=== PATIENT | female | born 1985 | race Caucasian/White ===

== ENCOUNTER 2025-07-05 18:20 | Emergency (ER) | payer BC, SELFPAY ==
[2025-07-05 18:27] VITALS: BP 139/86; PULSE 59; TEMP 36.7; O2SAT 99; BMI 28.9
--- NOTE | 2025-07-05 18:43 | CT_ITS ---
The [address] [address] Patient Name: CLEMENTE MORRIS MRN: [id number] date: 1985 Sex: F Assigned Patient Location: ED.MAIN Current Patient Location: ED.MAIN Accession/Order Number: [id number] Exam Date: 07/05/2025 19:38 Report Date: 07/05/2025 20:06 At the request of: MALENA SAM Procedure: CT abdomen pelvis w con CT ABDOMEN AND PELVIS WITH INTRAVENOUS CONTRAST: CLINICAL HISTORY: RUQ pain COMPARISON: None TECHNIQUE: Spiral images were obtained through the abdomen and pelvis following the administration of intravenous contrast. This CT exam was performed using one or more following dose reduction techniques: Automated exposure control, adjustment of the mA and/or kV according to patient size, or use of iterative reconstruction technique. FINDINGS: Lung Bases: [No focal opacity] Organs:Liver, gallbladder, spleen, adrenals, pancreas unremarkable. Minimal right-sided hydronephrosis caused by a right ureteral pelvic junction[calculus measuring 4 mm in size. There are additional right-sided calculi, nonobstructive. No left-sided hydronephrosis. Left superior pole renal calculus identified. GI: Mild retained stool within colon. No bowel obstruction. Appendix is unremarkable.[ Pelvis:[Heterogeneous uterus. No adnexal mass. There are follicles identified involving both ovaries. Slight prominence of the ovarian veins with likely mixing artifact noted.] Peritoneum/Retroperitoneum: No free air or free fluid. No pathologic adenopathy. Aorta unremarkable caliber. [ Abd wall/Bones:No suspicious osseous lesion.[ CT/CT abdomen pelvis w con IMPRESSION: Right-sided hydroureteronephrosis caused by 4 mm calculus right ureteral pelvic junction. Impression dictated by: Maksim Earl M.D. 07/05/2025 8:06 PM Dictation Location: [place] [address] Electronically authenticated by: [id number] Y Date: 07/05/2025 20:06
--- NOTE | 2025-07-05 18:44 | ED_ITS ---
HPI HPI - General Adult General Chief complaint: Abdominal Pain Stated complaint: ABDOMINAL PAIN/ UPPER RIGHT UNDER RIB CAGE Time Seen by Provider: 07/05/25 18:34 Source: patient Mode of arrival: walk-in History of Present Illness HPI narrative: 40 year old female presents to the ED for RUQ pain. It wraps around to her right flank. Onset was within the past 2-3 days. It became worse today. She has been feeling bloated for some time now. Denies fever, chills, urinary symptoms, injury. Reports nausea, diarrhea. Related Data Home Medications ?Medication ?Instructions ?Recorded ?Confirmed multivitamin (Daily Multi-Vitamin 1 tab PO DAILY 07/0507/05/25 tablet) Previous Rx's ?Medication ?Instructions ?Recorded cephalexin 500 mg capsule 500 mg PO BID 5 days #10 cap s 07/05/25 hydrocodone 5 mg-acetaminophen 325 1 tab PO Q8H PRN pa in 4 days #12 07/05/25 mg tablet tabs ondansetron 4 mg disintegrating 4 mg PO Q8H PRN nausea and 07/05/25 tablet vomiting 4 days #12 tabs tamsulosin 0.4 mg capsule (Flomax) 0.4 mg PO DAILY #10 caps 07/05/25 Allergies Allergy/AdvReac Type Severity Reaction Status Date / Time Penicillins Allergy Severe Anaphylaxis Verified 07/05/25 18:34 Sulfa (Sulfonamide Allergy Severe anaphylaxis Verified 07/05/25 18:34 Antibiotics) Opioid HPI Opioid Management Most Recent Opioid Data: Last Pain Scale 2 Today, 18:37 Last MAR Pain Assessment Today, 20:38 Review of Systems ROS Constitutional Denies: fever or chills Ears, nose, mouth, and throat Denies: throat pain Cardiovascular Denies: chest pain Respiratory Denies: shortness of breath Gastrointestinal Reports: abdominal pain, nausea and diarrhea; Denies: vomiting Genitourinary Denies: painful urination, urinary frequency, urinary urgency or blood in urine Musculoskeletal Reports: back pain Integumentary/Breast Denies: rash Neurological Denies: headache PFSH PFSH Social History Little interest or pleasure in doing things: not at all Feeling down, depressed, or hopeless: not at all Exam Constitutional Vital Signs, click to edit/add: Last Vital Signs Temp 98.1 F 07/05/25 18:27 Pulse 59 L 07/05/25 18:27 Resp 16 07/05/25 18:27 BP 139/86 07/05/25 18:27 Pulse Ox 99 07/05/25 18:27 O2 Del Method Room Air 07/05/25 18:27 Common normals: no apparent distress and oriented x3 General appearance: cooperative HENMT Common normals: moist oral mucous membranes Eye Common normals: conjunctivae normal and no scleral icterus Neck & C-Spine Common normals: supple Chest Chest: symmetrical chest wall rise Respiratory Common normals: normal respiratory effort Effort & inspection: able to speak in complete sentences and symmetric chest movement Cardio Common normals: regular rate and regular rhythm GI Common normals: Normal to inspection, nondistended, normoactive bowel sounds present and soft to palpation Palpation: tender Details: RUQ Common normals: no CVA tenderness Neuro Common normals: oriented x3 and moves all extremities Sensorium/orientation: awake and alert Speech: speech normal Course Vital Signs Vital signs: Vital Signs Temperature 98.1 F 07/05/25 18:27 Pulse Rate 59 L 07/05/25 18:27 Respiratory Rate 16 07/05/25 18:27 Blood Pressure 139/86 07/05/25 18:27 Pulse Oximetry 99 07/05/25 18:27 Oxygen Delivery Method Room Air 07/05/25 18:27 Temperature 98.1 F 07/05/25 18:27 Pulse Rate 59 L 07/05/25 18:27 Respiratory Rate 16 07/05/25 18:27 Blood Pressure 139/86 07/05/25 18:27 Pulse Oximetry 99 07/05/25 18:27 Oxygen Delivery Method Room Air 07/05/25 18:27 Medical Decision Making MDM Narrative Medical decision making narrative: WBC count was 12.7. Urinalysis showed 5-[address] scan showed right-sided hydroureteronephrosis caused by 4 mm calculus right ureteral pelvic junction. Findings were discussed. She was medicated with Zofran, Toradol, and Flomax here. She was driving today which limited her pain treatment options here. OARRS was reviewed. Prescriptions were provided for Zofran, Keflex, Flomax, and [place]. Follow up with pcp and urology for a recheck, further evaluation and treatment. Return precautions were discussed. Return to the ED for worsening symptoms. She was discharged with a urine strainer. Medical Records Medical records reviewed: Yes I reviewed the patient's medical records Lab Data Lab results reviewed: Yes I reviewed the patient's lab results Labs: Lab Results 07/05/25 07/05/25 Range/Units 18:54 18:56 WBC 12.7 H (4.0-11.0) 10^3/uL RBC 4.92 (4.20-5.40) 10^6/uL Hgb 14.3 (12.0-16.0) g/dL Hct 42.8 (36.0-48.0) % MCV 87.0 (81.0-99.0) fL MCH 29.1 (26.7-34.0) pg MCHC 33.4 (29.9-35.2) g/dL RDW 12.0 (11.0-15.0) % Plt Count 303 (150-450) 10^3/uL MPV 8.8 L (9.5-13.5) fL Neut % (Auto) 78.0 H (43.0-75.0) % Lymph % (Auto) 16.1 L (20.5-60.0) % [place] % (Auto) 4.5 (1.7-12.0) % Eos % (Auto) 0.7 L (0.9-7.0) % Baso % (Auto) 0.5 (0.2-2.0) % Neut # (Auto) 9.9 H (1.4-6.5) 10^3/uL Lymph # (Auto) 2.0 (1.2-3.8) 10^3/uL [place] # (Auto) 0.6 (0.3-0.8) 10^3/uL Eos # (Auto) 0.1 (0.0-0.7) 10^3/uL Baso # (Auto) 0.1 (0.0-0.1) 10^3/uL Abs Immat Gran (auto) 0.03 (0.00-0.03) 10^3/uL Imm/Tot Granulo (auto) 0.2 (0.0-0.5) % Sodium 139 (136-145) mmol/L Potassium 3.8 (3.5-5.1) mmol/L Chloride 102 (98-107) mmol/L Carbon Dioxide 27.9 (21.0-32.0) mmol/L Anion Gap 12.9 BUN 18.0 (7.0-18.0) mg/dL Creatinine 0.59 (0.55-1.02) mg/dL Est GFR ( Amer) >60 (>=60 mL/min/1.73m^2) Est GFR (Non-Af Amer) >60 (>=60 mL/min/1.73m^2) BUN/Creatinine Ratio 30.5 Glucose 95 (74-106) mg/dL Calcium 9.5 (8.5-10.1) mg/dL Total Bilirubin 0.4 (0.2-1.0) mg/dL AST 20 (15-37) U/L ALT 24 (14-59) U/L Alkaline Phosphatase 48 (46-116) U/L Total Protein 7.6 (6.4-8.2) g/dL Albumin 4.2 (3.4-5.0) g/dL Globulin 3.4 g/dL Albumin/Globulin Ratio 1.2 Lipase 20.0 (16.0-77.0) U/L Urine Color Lt. yellow (YELLOW) Urine Clarity Clear (CLEAR) Urine pH 5.5 (5.0-9.0) Ur Specific [place] <=1.005 A (1.005-1.025) Urine Protein Negative (NEG/TRACE) mg/dL Urine Glucose (UA) Negative (NEGATIVE) mg/dL Urine Ketones 15 A (NEGATIVE) mg/dL Urine Occult Blood Large A (NEGATIVE) Urine Nitrite Negative (NEGATIVE) Urine Bilirubin Negative (NEGATIVE) Urine Urobilinogen 0.2 (0.2-1.0) EU/dL Ur Leukocyte Esterase Negative (NEGATIVE) Urine RBC 5-10 A (0-2) #/HPF Urine WBC 0-2 A (NONE SEEN) #/HPF Ur Squamous Epith Cells Rare (NONE/RARE) #/LPF Urine Crystals None seen (None Seen) #/HPF Urine Bacteria None seen (NONE SEEN) #/HPF Urine Casts None seen (NONE SEEN) #/LPF Urine Mucus None seen (NONE SEEN) Urine Yeast Seen A (NONE SEEN) Ur Culture Indicated? No Urine HCG, Qual Negative (NEGATIVE) Imaging Data CT scan - abdomen: Attestation: I have reviewed the pertinent imaging results. Radiologist's impression: ITS Impressions Abdomen/Pelvis CT 07/05/25 18:43 IMPRESSION: Right-sided hydroureteronephrosis caused by 4 mm calculus right ureteral pelvic junction. Impression dictated by: Maksim Earl M.D. 07/05/2025 8:06 PM Dictation Location: [place] [address] Electronically authenticated by: [id number] Y Date: 07/05/2025 20:06 Discharge Plan Discharge Chief Complaint: Abdominal Pain Clinical Impression: Right ureteral calculus Patient Disposition: Home, Self-Care Time of Disposition Decision: 20:22 Condition: Good Mode of Transportation: Private Vehicle Prescriptions / Home Meds: New ondansetron 4 mg tablet,disintegrating 4 mg PO Q8H PRN (Reason: nausea and vomiting) 4 Days Qty: 12 0RF hydrocodone-acetaminophen 5-325 mg tablet 1 tab PO Q8H PRN (Reason: pain) 4 Days Qty: 12 0RF tamsulosin [Flomax] 0.4 mg capsule 0.4 mg PO DAILY Qty: 10 0RF cephalexin 500 mg capsule 500 mg PO BID 5 Days Qty: 10 0RF No Action multivitamin [Daily Multi-Vitamin] Tablet 1 tab PO DAILY Print Language: Croatian Instructions: Kidney Stones (ED), Ureteral Stones (ED) Additional Instructions: Return to the ED for worsening symptoms. Referrals: Zeinab Pan DO [Primary Care Provider] - 1 week Marshal El MD [Physician, Urology] - 1 week Discharge Date/Time: 07/05/25 20:50
[2025-07-05] MEDS: 0.9 % SODIUM CHLORIDE 1,000 ML 999 ML IV (19:08)
[2025-07-05 19:19] LABS: Glucose Urine UA NEGATIVE (NEGATIVE)
[2025-07-05 19:20] LABS: Hematocrit 42.8 % (36.0-48.0); Hemoglobin 14.3 g/dL (12.0-16.0); Immature Granulocytes Abs Auto 0.03 10^3/uL (0.00-0.03); Immature Granulocytes Pct Auto 0.2 % (0.0-0.5); Lymphocytes Absolute Auto 2.0 10^3/uL (1.2-3.8); Mean Corpuscular HGB Conc 33.4 g/dL (29.9-35.2); Mean Corpuscular Hemoglobin 29.1 pg (26.7-34.0); Mean Corpuscular Volume 87.0 fL (81.0-99.0); Platelet Count 303 10^3/uL (150-450); Red Blood Count 4.92 10^6/uL (4.20-5.40); White Blood Count 12.7 10^3/uL (4.0-11.0)
[2025-07-05 19:20] LABS: HCG Qualitative Urine* NEGATIVE (NEGATIVE)
--- OUTSIDE RECORDS SUMMARY | 2025-07-05 19:22 | XMS_ITS | Clinical Summary ---
Author Organization [facility] Address [address] [place] [id number] Care Team Providers Care Gas Examiner Name Role Phone Zeinab Pan Primary Care Provider Allergies Active AllergyReactionsCriticalityNoted DateCommentsPenicillinsShortness of Breath,GsvxtsbyVkbv82/28/2017 Pt even had a reaction to amoxicillin when administering medicine to her child through a syringe. Sulfa (Sulfonamide Antibiotics)Hives,UlprAxe5712/25/2013 Throat tightens Sulfamethoxazole-TrimethoprimHives,PtyrCcu3212/25/2013 Throat tightens Medications MedicationSigDispense QuantityRefillsLast FilledStart DateEnd DateStatus multivit with calcium,iron,min (WOMEN'S DAILY MULTIVITAMIN ORAL) Take by mouth once daily.Active MEDICATION, NON-DATABASE Take by mouth two times a week. Molecular iodine from KelpActive Active Problems ProblemNoted DateDiagnosed DateBreast fibroadenoma in female, right05/10/2023 Family History Medical HistoryRelationCommentsColon CancerMaternal GrandmotherAnesthesia ProblemsMotherslow emergenceBreast CancerPaternal Auntlate 60's, stage 4Breast CancerPaternal GrandmotherColon CancerPaternal GrandmotherOvarian cancerNo Family HistoryPancreatic CancerNo Family HistoryProstate CancerNo Family History Uterine CancerNo Family HistoryRelationStatusCommentsMaternal GrandmotherMother Paternal AuntAlivePaternal Grandmother Social History Tobacco UseTypesPacks/DayYears UsedDateSmoking Tobacco: NeverSmokeless Tobacco: Never Tobacco Cessation:Counseling Given: Not Answered Alcohol UseStandard Drinks/WeekCommentsNot Currently0 (1 standard drink = 0.6 oz pure alcohol)PHQ-2AnswerDate RecordedPHQ-2 gngts935rea Deprivation IndexAnswerDate RecordedNational Score (1-100), lower number is lower risk62 05/01/2023State Score (1-10), lower number is lower vqpp007ata from: https://www.neighborhoodatlas.medicine.[facility]/. Last address used for [address]05/01/2023CommentsNoSex and Gender Information ValueDate RecordedSex Assigned at BirthNot on fileLegal ZqcDsutlz01/17/2023 9:37 PM EDTGender IdentityNot on fileSexual OrientationNot on file Last Filed Vital Signs Vital SignReadingTime TakenCommentsBlood Mfrxbrli755/7510 9:43 AM EDT Xwnby321105/31/2023 9:43 AM VSQXashmqzmcis62.7 ??C (98.1 ??F)05/31/2023 9:43 AM EDTRespiratory Kega9387 2:00 PM EDTOxygen Wlnpflauuy72%05/31/2023 9:43 AM EDTInhaled Oxygen Concentration--Acvbkq39.4 kg (199 lb 3.2 oz)05/31/2023 9:43 AM XCXZpakwh500.3 cm (5' 9 )05/31/2023 9:43 AM EDTBody Mass Index29.421 9:43 AM EDT Plan of Treatment Health MaintenanceDue DateLast DoneCommentsAnxiety Telrydkjo47/04/2005Depression Zkileaajl02/04/2005DTaP,Tdap,Td Vaccine (1 - Tdap)2006Hepatitis B Vaccine (1 of 3 - 19+ 3-dose series)2006Cervical Cancer Tsrcdxjsi08/04/2008HPV Vaccine (1 - 3-dose SCDM series)2014Covid-19 Vaccine ( - season) 2025Influenza Vaccine (#1)2025HIV HtnqtdlefTutmlwbjz72/19/2020, 10/19/2019, 08/30/2017Hepatitis C MdqlkmsptEvpovkbnq80/19/2020 Insurance * Guarantor: Darleen Morris TypeRelation to PatientDate of BirthPhoneBilling AddressPersonal/JoqpyaItlo1985 [address] [address] Care Teams Team MemberRelationshipSpecialtyStart DateEnd Zeinab Pan DO [address] [facility] [place] [address] PCP - GeneralFamily Medicine03/29/23
[2025-07-05 19:26] LABS: Cast Seen? NONE SEEN #/LPF (NONE SEEN); Crystals Seen? None Seen #/HPF (None Seen); Urine Culture Indicated NO
[2025-07-05 19:33] LABS: Alanine Aminotransferase 24 U/L (14-59); Albumin Globulin Ratio 1.2; Albumin Level 4.2 g/dL (3.4-5.0); Alkaline Phosphatase 48 U/L (46-116); Anion Gap 12.9; Aspartate Amino Transferase 20 U/L (15-37); Blood Urea Nitrogen 18.0 mg/dL (7.0-18.0); Calcium 9.5 mg/dL (8.5-10.1); Carbon Dioxide 27.9 mmol/L (21.0-32.0); Chloride 102 mmol/L (98-107); Estimated GFR (African America >60 (>=60 mL/min/1.73m^2); Estimated GFR (Non-African Ame >60 (>=60 mL/min/1.73m^2); Globulin 3.4 g/dL; Glucose 95 mg/dL (74-106); Lipase 20.0 U/L (16.0-77.0); Potassium 3.8 mmol/L (3.5-5.1); Sodium 139 mmol/L (136-145); Total Protein 7.6 g/dL (6.4-8.2)
[2025-07-05] MEDS: KETOROLAC TROMETHAMINE 30 MG/ML VIAL IVP (20:38)
[2025-07-05] MEDS: TAMSULOSIN HCL 0.4 MG CAPSULE PO (20:39)
== END 2025-07-05 20:50 | disposition home or self-care (01) ==
PROVIDERS: Nurse Practitioner Family; Emergency Provider Internal Medicine; PCP Family Medicine
DX: N13.2 Hydronephrosis with renal and ureteral calculous obstruction (principal)
CPT/HCPCS: 36415; 74177; 80053; 81001; 83690; 84703; 85025; 96374; 96375; 99285; J1885; J2405; Q9967

== ENCOUNTER 2025-07-12 13:40 | Outpatient (OUT) | payer BC, SELFPAY | END 2025-07-12 13:41 | disposition home or self-care (01) | LOC: PST 13:40 | PROVIDERS: PCP Family Medicine; Visit Provider Urology | DX: Z01.818 Encounter for other preprocedural examination (principal); N20.1 Calculus of ureter; N13.30 Unspecified hydronephrosis ==

== ENCOUNTER 2025-07-13 09:57 | Day surgery (SDC) | payer BC, SELFPAY ==
[2025-07-13] VITALS (17 sets, daily range): BP systolic 116–157; BP diastolic 62–113; PULSE 58–90; TEMP 36.2–36.6; O2SAT 97–100; BMI 29.7
[2025-07-13] MEDS: CIPROFLOXACIN IN 5 % DEXTROSE 400 MG/200 ML PREMIX 200 MG IV (11:25)
[2025-07-13] MEDS: FAMOTIDINE/PF 20 MG/2 ML VIAL IV (11:36)
[2025-07-13] MEDS: SCOPOLAMINE 1 MG/3 DAYS TRANSDERM PATCH 1 PATCH TD (11:36)
--- NOTE | 2025-07-13 12:35 | P.URON_ITS ---
Urology Surgery Operative Note Operative Note Procedure Date: 07/13/25 Time Out Performed: yes Pre-op Diagnosis: Obstructing right ureteral calculus Post-op Diagnosis: other (Right renal calculus) Procedures performed: 1. Cystoscopy. 2. Right ureteroscopy. 3. Right pyeloscopy. 4. Thulium laser lithotripsy of the very hard right renal calculus. 5. Placement of 6 Pakistani variable length right ureteral stent Anesthesia: RASHEL Primary Surgeon: Marshal El Complications: None Estimated blood loss (mL): 5 Findings: #1. Right ureteral stone migrated into renal pelvis. 2. The stone is extremely hard Specimens: None Drains: 6 Pakistani variable length right ureteral stent Indications for Procedures: This lady had an obstructing 4 to 7 mm right proximal ureteral calculus. She has been having pain every day and is desirous to get this definitively managed. She has signed an informed consent for ureteroscopic stone manipulation and rig ht stent placement after risks were explained. Detailed description of Procedure: The patient was brought to the operating room and placed on the operating room table in the supine position. SCDs were placed on the lower extremities and turned on and functioning during the entire case. Timeout was done by all parties in the room. We all agreed upon the patient's identification and the planned procedures for this patient. Genn. anesthesia was then administered. The patient was then repositioned into the modified dorsal lithotomy position. All pressure points were satisfactorily padded. Genitalia were sterilely prepped and draped in usual fashion. I started by passing a 22 Pakistani Olympus cystoscope per urethra and into the bladder. Panendoscopy in the bladder revealed no evidence of any stones, tumors or lesions. Using fluoroscopy I could clearly see her stone and it appeared as though it was within the renal pelvis. I then passed a Glidewire through the scope and cannulated the right ureter and guided up into the kidney. Scope was removed. I then used a 10/12 Pakistani access sheath and passed it over the wire up to the L5 position. Stylette and wire were removed. A flexible ureteroscope was then passed through the sheath and into the ureter. I ascended up the ureter and then went into the kidney. I looked into the upper mid and lower pole calyces. Her only stone was the 1 that used to be within the ureter and now it is in the midpole calyx. I then used a 270 Angstrom laser fiber. I made contact with the stone and with the thulium laser started at 7 W and increased to 10 W and then 15 W on the dusting mode. The stone was very hard. I tried to remove a piece of it by basket but her UPJ was somewhat narrowed and I was unable to get this through this area. Therefore I pushed the stone piece back into the kidney and used the laser fiber and dusted all of the stone within the kidney. There was no visible stone remaining endoscopically or by live x-ray. The fiber was removed and I then passed a Glidewire into the kidney through the scope. The scope and the sheath were then removed. Cystoscope was backloaded over the wire and passed into the bladder. I then slid a 6 Pakistani variable length stent over the wire up to the kidney. The wire was removed and there were good curls in the kidney and in the bladder. The bladder was drained of its contents and the scope was then removed. Anesthetic was then reversed. She was then transferred to a [facility] bed and wheeled to PACU in stable condition.
[2025-07-13] MEDS: HYDROMORPHONE HCL 0.5 MG/0.5 ML SYRINGE IV ×3 (12:50→13:11)
[2025-07-13] MEDS: HYOSCYAMINE SULFATE 0.125 MG TAB.SUBL SL (12:50)
[2025-07-13] MEDS: ACETAMINOPHEN 1,000 MG/100 ML PREMIX 400 MG IV (13:27)
--- NOTE | 2025-07-13 14:48 | PC.NURSE ---
1435: pt ambulates to bathroom with assistance,pt voids without difficulty. urine red with no clots.
== END 2025-07-13 16:00 | disposition home or self-care (01) ==
LOC: SURGOUT 09:59
PROVIDERS: Anesthesiology; PCP Family Medicine; Visit Provider Urology
PROC: (CPT 918; principal; 2025-07-13 11:30)
DX: N13.2 Hydronephrosis with renal and ureteral calculous obstruction (principal)
CPT/HCPCS: 52356; 36415; 76000; 84703; J0131; J0744; J1100; J1171; J1453; J1885; J2250; J2405; J2704; J3010; J3490